=== PATIENT | male | born 1940 | race African-American/Black ===

== ENCOUNTER 2016-12-13 06:05 | Day surgery (SDC) | payer OTHER ==
[2016-12-11 16:49] VITALS: BMI 27.8
[2016-12-13] MEDS ORDERED: BUPIVACAINE HCL/PF 0.5% (5MG/ML) 10 ML VIAL ONE (07:20)
--- NOTE | 2016-12-13 08:00 | HP ---
History & Physical Update - History History: No Change - Physical Physical: No Change - Assessment Assessment: No Change - Plan Plan: No Change
[2016-12-13] MEDS ORDERED: DESFLURANE GAS 240 ML BOTTLE IH ONE (08:10)
[2016-12-13] MEDS ORDERED: ROCURONIUM BROMIDE 50 MG/5 ML VIAL ONE (08:12)
[2016-12-13] MEDS ORDERED: DEXAMETHASONE SOD PHOSPHATE 4 MG/1 ML VIAL ONE (08:12)
[2016-12-13] MEDS ORDERED: KETOROLAC TROMETHAMINE 30 MG/1 ML VIAL ONE (08:12)
[2016-12-13] MEDS ORDERED: PROPOFOL 20 ML ONE (08:12)
[2016-12-13] MEDS ORDERED: ceFAZolin SODIUM 1 GM VIAL ONE (08:12)
[2016-12-13] MEDS ORDERED: MIDAZOLAM HCL 2 MG/2 ML SINGLE DOSE VIAL ONE (08:14)
[2016-12-13] MEDS ORDERED: ceFAZolin SODIUM 1 GM VIAL IVPB ONE (08:28)
[2016-12-13] MEDS ORDERED: BUPIVACAINE HCL/PF 0.5% (5MG/ML) 10 ML VIAL IJ ONE (08:35)
[2016-12-13] MEDS ORDERED: BENZOIN/ALOE VERA/STORAX/TOLU 58 ML BOTTLE ONE (09:33)
[2016-12-13] MEDS ORDERED: NEOSTIGMINE METHYLSULFATE 0.5 MG/ML - 10 ML MDV ONE (09:36)
[2016-12-13] MEDS ORDERED: oxyCODONE HCL 5 MG TABLET PO PRN (10:03)
[2016-12-13] MEDS ORDERED: PROMETHAZINE HCL 25 MG/1 ML VIAL IVPUSH PRN (10:03)
[2016-12-13] MEDS ORDERED: ONDANSETRON 4 MG/2 ML VIAL IVPUSH PRN (10:03)
[2016-12-13 11:51] VITALS: BP 131/82; PULSE 65; TEMP 97.7
--- NOTE | 2016-12-13 13:34 | OP ---
Operative Note - Note: Operative Date: 12/13/16 Pre-Operative Diagnosis: Right inguinal hernia Operation: Right inguinal hernia repair with mesh and excision of lipoma of the cord Findings: indirect inguinal hernia, lipoma of the cord Implants: polypropylene plug and patch Surgeon: Bennett Banegas Anesthesiologist/STRESS TEST TECHNICIAN: Darius Darnell Anesthesia: General Specimens Removed: lipoma of the cord Estimated Blood Loss (mls): 3 Operative Report Dictated: Yes
--- NOTE | 2016-12-16 14:13 | PATH ---
Surgical Pathology Report Patient Name: STEVEN GUZMÁN [facility]. Rec. #: [id number] /Age/Gender: 1940 (Age: 76) / M Account: [id number] Location: [facility] SURGICAL Taken: 12/12/2016 Received: 12/13/2016 Reported: 12/16/2016 Physicians: Bennett Banegas M.D. Specimen(s) Received LIPOMA OF CORD Clinical History Right inguinal hernia Final Diagnosis SOFT TISSUE, RIGHT INGUINAL, EXCISION: BENIGN ADIPOSE TISSUE CONSISTENT WITH CORD LIPOMA. Electronically Signed Thom Beck M.D. Gross Description Received in formalin labeled "lipoma of cord," is a 5.0 x 4.3 x 1.5 cm portion of yellow, lobulated adipose tissue with attached kendall-saravia fibromembranous tissue. Retail Sales Associate Seasonal sections are submitted in one cassette. /12/13/2016 saudi12/13/2016
== END 2016-12-13 11:40 | disposition home or self-care (01) ==
LOC: JASU-SURG 06:05
PROVIDERS: ATTEND Surgery
PROC: 0YU50JZ Supplement Right Inguinal Region with Synthetic Substitute, Open Approach (ICD-10-PCS; principal; 2016-12-13 08:00)
DX: K40.90 Unilateral inguinal hernia, without obstruction or gangrene, not specified as recurrent (principal)
CPT/HCPCS: 88304-TC; 94760

== ENCOUNTER 2017-01-08 12:12 | Emergency (ER) | payer OTHER ==
[2017-01-08 12:16] VITALS: BMI 27.3
[2017-01-08 13:34] LABS: BASOPHIL 2.1 % (0-2.0); EOSINOPHIL 3.3 % (0-4.5); MEAN CELL VOLUME 71.1 fl (80-96); MEAN PLT VOLUME 9.2 fl (7.5-11.1); NEUTROPHILS 40.2 % (42.8-82.8); PLATELET COUNT 169 K/MM3 (134-434); RDW 17.8 % (11.9-15.9); WHITE BLOOD COUNT 3.5 K/mm3 (4.0-10.0)
[2017-01-08 13:48] LABS: INR 1.07 (0.82-1.09); PROTHROMBIN TIME (PATIENT) 12.1 SEC (9.98-11.88)
--- NOTE | 2017-01-08 13:48 | PDOC ---
History of Present Illness <Lily Stanley - Last Filed: 01/08/17 14:08> <Malik Kennedy - Last Filed: 01/10/17 07:17> - General Chief Complaint: Chest Pain Stated Complaint: CHEST PAIN Time Seen by Provider: 01/08/17 12:22 - History of Present Illness Initial Comments: 01/08/17 13:46 "The patient is a 76 year old male, with a significant past medical history of hypertension, asthma, COPD, and prostate cancer who presents to the emergency department with chest pain approximately 2 hours ago. The patient reports he was sitting down, when suddenly he began to experience a sharp nonradiating chest pain. Patient reports his pain lasted approximately 30 minutes and was not exertional or pleuritic. He denies any associated shortness of breath, diaphoresis, palpitations, or lower extremity edema. Patient reports he saw a Community Engagement Coordinator several months ago and had a cardiac cath that was normal. He denies any abdominal pain, nausea, vomiting, diarrhea, or constipation. He denies any fever, chills, headache, or dizziness. He denies any recent travel or sick contacts. Allergies: NKDA Past Surgical History: None reported Social History: Non smoker. No ETOH or recreational drug use. PCP: Dr. Machado " (Malik Kennedy) Past History <JadenAlyxsena - Last Filed: 01/08/17 14:08> - Past Medical History Anemia: No Asthma: Yes Cancer: Yes (PROSTATE CANCER 1999) Cardiac Disorders: No CVA: No COPD: No CHF: No Dementia: No Diabetes: No GI Disorders: No Disorders: No HTN: Yes Hypercholesterolemia: No Liver Disease: No Seizures: No Thyroid Disease: No - Surgical History Abdominal Surgery: No Appendectomy: No Cardiac Surgery: No Cholecystectomy: No Lung Surgery: No Neurologic Surgery: No Orthopedic Surgery: No - Suicide/Smoking/Psychosocial Hx Smoking History: Never smoked Have you smoked in the past 12 months: No If you are a former smoker, when did you quit?: 2002 Hx Alcohol Use: No Drug/Substance Use Hx: No Substance Use Type: None Hx Substance Use Treatment: No <Malik Kennedy - Last Filed: 01/10/17 07:17> - Past Medical History Allergies/Adverse Reactions: Allergies Allergy/AdvReac Type Severity Reaction Status Date / Time No Known Allergies Allergy Verified 01/08/17 12:16 Home Medications: Ambulatory Orders Albuterol Sulfate Inhaler - [Ventolin HFA Inhaler -] 1 inh IH BID 12/11/16 Amlodipine Besylate [Norvasc -] 5 mg PO DAILY 12/11/16 Tamsulosin HCl 0.4 mg PO DAILY 12/11/16 Docusate Sodium [Colace -] 100 mg PO TID PRN #90 capsule 12/13/16 Cardiac Specific PMH - Complaint Specific PMHX Pacemaker: No <Malik Kennedy - Last Filed: 01/10/17 07:17> Review of Systems <Lily Stanley - Last Filed: 01/08/17 14:08> <Malik Kennedy - Last Filed: 01/10/17 07:17> - Review of Systems Comments:: 01/08/17 13:47 "GENERAL/CONSTITUTIONAL: No fever or chills. No weakness. HEAD, EYES, EARS, NOSE AND THROAT: No change in vision. No ear pain or discharge. No sore throat. CARDIOVASCULAR: Yes chest pain. No shortness of breath, diaphoresis, palpitations, or lower extremity edema. RESPIRATORY: No cough, wheezing, or hemoptysis. GASTROINTESTINAL: No nausea, vomiting, diarrhea or constipation. GENITOURINARY: No dysuria, frequency, or change in urination. MUSCULOSKELETAL: No joint or muscle swelling or pain. No neck or back pain. SKIN: No rash NEUROLOGIC: No headache, vertigo, loss of consciousness, or change in strength/ sensation. ENDOCRINE: No increased thirst. No abnormal weight change. HEMATOLOGIC/LYMPHATIC: No anemia, easy bleeding, or history of blood clots. ALLERGIC/IMMUNOLOGIC: No hives or skin allergy. " (Malik Kennedy) *Physical Exam <Lily Stanley - Last Filed: 01/08/17 14:08> <Malik Kennedy - Last Filed: 01/10/17 07:17> - Vital Signs Last Vital Signs Temp Pulse Resp BP Pulse Ox 98.4 F 84 18 148/90 97 01/08/17 20:41 01/08/17 20:41 01/08/17 20:41 01/08/17 20:41 01/08/17 20:41 - Physical Exam Comments: 01/08/17 13:48 "GENERAL: Awake, alert, and fully oriented, in no acute distress HEAD: No signs of trauma EYES: PERRLA, EOMI, sclera anicteric, conjunctiva clear ENT: Auricles normal inspection, hearing grossly normal, nares patent, oropharynx clear without exudates. Moist mucosa NECK: Nontender, no stepoffs, Normal ROM, supple, no lymphadenopathy, JVD, or masses LUNGS: Breath sounds equal, clear to auscultation bilaterally. No wheezes, and no crackles HEART: Regular rate and rhythm, normal S1 and S2, no murmurs, rubs or gallops ABDOMEN: Soft, nontender, normoactive bowel sounds. No guarding, no rebound. No masses EXTREMITIES: Normal range of motion, no edema. No clubbing or cyanosis. No cords, erythema, or tenderness NEUROLOGICAL: Cranial nerves II through XII intact. 5/5 strength and sensation in all extremities, Normal speech, normal gait SKIN: Warm, Dry, normal turgor, no rashes or lesions noted. " (Malik Kennedy) Heart Score/ECG Review <Lily Stanley - Last Filed: 01/08/17 14:08> - History History: Slightly suspicious - Electrocardiogram EKG: Normal - Age Age: >/= 65 - Risk Factors Risk Factors Heart Score: Yes Hx Hypertension - Troponin Troponin: </= normal limit <Malik Kennedy - Last Filed: 01/10/17 07:17> - ECG Impressions Comment:: 01/08/17 13:49 NSR, no BERONICA/STDs, no TWIs, inervals wnl, L axis deviation (Malik Kennedy) ED Treatment Course - LABORATORY CBC & Chemistry Diagram: 01/08/17 13:12 01/08/17 13:12 <Lily Stanley - Last Filed: 01/08/17 14:08> - LABORATORY CBC & Chemistry Diagram: 01/08/17 13:12 01/08/17 13:12 <Malik Kennedy - Last Filed: 01/10/17 07:17> - ADDITIONAL ORDERS Additional order review: 01/08/17 13:12 RBC 5.89 H MCV 71.1 L MCHC 31.0 L RDW 17.8 H MPV 9.2 Neutrophils % 40.2 L Lymphocytes % 43.0 H Monocytes % 11.4 H Eosinophils % 3.3 Basophils % 2.1 H - RADIOLOGY Radiology Studies Ordered: Category Date Time Status CHEST PA & LAT [RAD] Stat Radiology 01/08/17 13:11 Completed 01/08/17 14:08 EXAM: CXR INTERPRETED BY: Dr. Washington REVIEWED BY: Dr. Kennedy IMPRESSION: No acute pathology or significant change since 06/19/2015. (Lily Stanley) Medical Decision Making <Lily Stanley - Last Filed: 01/08/17 14:08> <Malik Kennedy - Last Filed: 01/10/17 07:17> - Medical Decision Making 01/08/17 13:55 76 M with transient, atypical chest pain, now resolved. ACS unlikely given nonischemic EKG and few cardiac risk factors. Pt with stable vitals, No PE risk factors. No tearing sensation to suggest dissection, no palpable abdominal masses. Pulses equal bilaterally. - Labs, trop x 2 - CXR 01/08/17 18:52 CBC,CMP WBC 3.5 K/mm3 (4.0-10.0) L 01/08/17 13:12 RBC 5.89 M/mm3 (4.00-5.60) H 01/08/17 13:12 Hgb 13.0 GM/dL (11.7-16.9) 01/08/17 13:12 Hct 41.9 % (35.4-49) 01/08/17 13:12 MCV 71.1 fl (80-96) L 01/08/17 13:12 MCH 22.0 pg (25.7-33.7) L 01/08/17 13:12 MCHC 31.0 g/dl (32.0-35.9) L 01/08/17 13:12 RDW 17.8 % (11.9-15.9) H 01/08/17 13:12 Plt Count 169 K/MM3 (134-434) 01/08/17 13:12 MPV 9.2 fl (7.5-11.1) 01/08/17 13:12 Neutrophils % 40.2 % (42.8-82.8) L 01/08/17 13:12 Lymphocytes % 43.0 % (8-40) H 01/08/17 13:12 Monocytes % 11.4 % (3.8-10.2) H 01/08/17 13:12 Eosinophils % 3.3 % (0-4.5) 01/08/17 13:12 Basophils % 2.1 % (0-2.0) H 01/08/17 13:12 Sodium 139 mmol/L (136-145) 01/08/17 13:12 Potassium 4.0 mmol/L (3.5-5.1) 01/08/17 13:12 Chloride 102 mmol/L (98-107) 01/08/17 13:12 Carbon Dioxide 33 mmol/L (21-32) H 01/08/17 13:12 Anion Gap 4 (8-16) L 01/08/17 13:12 BUN 15 mg/dL (7-18) 01/08/17 13:12 Creatinine 1.3 mg/dL (0.7-1.3) 01/08/17 13:12 Creat Clearance w eGFR 53.67 (>60) 01/08/17 13:12 Random Glucose 89 mg/dL (74-106) 01/08/17 13:12 Calcium 9.3 mg/dL (8.5-10.1) 01/08/17 13:12 Total Bilirubin 0.8 mg/dL (0.2-1.0) 01/08/17 13:12 AST 10 U/L (15-37) L 01/08/17 13:12 ALT 19 U/L (12-78) 01/08/17 13:12 Alkaline Phosphatase 74 U/L (45-117) D 01/08/17 13:12 Creatine Kinase 195 IU/L (39-308) 01/08/17 13:14 Creatine Kinase Index 0.5 % (0.0-5.0) 01/08/17 13:14 CK-MB (CK-2) 1.038 ng/mL (0.5-3.6) 01/08/17 13:14 Troponin I < 0.02 ng/ml (0.00-0.05) 01/08/17 13:14 B-Natriuretic Peptide 26.47 pg/ml (5-450) 01/08/17 13:14 Total Protein 7.7 g/dl (6.4-8.2) 01/08/17 13:12 Albumin 4.5 g/dl (3.4-5.0) D 01/08/17 13:12 First set of labs wnl, trop negative. Pt continues to be well appearing and asymptomatic with normal vitals. Pt signed out to night attending, Dr. Rojo, at 7PM. Dispo pending repeat troponin and re-evaluation. Case discussed in detail with oncoming Emergency Physician including history, physical exam and ancillary studies. Oncoming Emergency Physician has assumed care for the patient and will complete the evaluation and treatment. Patient is aware of the plan. (Malik Kennedy) *DC/Admit/Observation/Transfer <Lily Stanley - Last Filed: 01/08/17 14:08> <Malik Kennedy - Last Filed: 01/10/17 07:17> Diagnosis at time of Disposition: Chest pain - Discharge Dispostion Disposition: HOME Condition at time of disposition: Stable - Referrals Referrals: Serg Machado [Primary Care Provider] - Rosalio Tomas MD [Staff Physician] - - Patient Instructions Printed Discharge Instructions: DI for Chest Pain Additional Instructions: You must see a jewelry making instructor for further work up of your chest pain. If you experience worsening pain, shortness of breath, or any other concerning symptoms, return to the ER immediately. - Attestations Scribe Attestion: 01/08/17 14:09 Documentation prepared by Lily Stalney, acting as medical radiation therapist for Malik Kennedy MD. (Lily Stanley) Physician Attestion: 01/10/17 07:16 I, Dr. Malik Kennedy MD, attest that this document has been prepared under my direction and personally reviewed by me in its entirety. I further attest, that it accurately reflects all work, treatment, procedures and medical decision -making performed by me. (Malik Kennedy)
[2017-01-08 14:50] LABS: ALBUMIN 4.5 g/dl (3.4-5.0); ANION GAP 4 (8-16); CALCIUM 9.3 mg/dL (8.5-10.1); CO2 33 mmol/L (21-32); GLUCOSE,RANDOM 89 mg/dL (74-106)
[2017-01-08 14:53] LABS: ALK PHOS 74 U/L (45-117); BILIRUBIN,TOTAL 0.8 mg/dL (0.2-1.0); CREATININE 1.3 mg/dL (0.7-1.3); SGOT/AST 10 U/L (15-37); SGPT/ALT 19 U/L (12-78); TOT PROT 7.7 g/dl (6.4-8.2)
[2017-01-08 14:55] LABS: CPK 195 IU/L (39-308); TROPONIN I < 0.02 ng/ml (0.00-0.05)
[2017-01-08 19:48] LABS: CPK 163 IU/L (39-308); TROPONIN I < 0.02 ng/ml (0.00-0.05)
[2017-01-08 20:41] VITALS: PULSE 84
[2017-01-08 20:42] VITALS: BP 148/90; TEMP 98.4
--- NOTE | 2017-01-09 13:03 | EKG ---
Test Reason : Blood Pressure : / mmHG Vent. Rate : 058 BPM Atrial Rate : 058 BPM P-R Int : 206 ms QRS Dur : 094 ms QT Int : 404 ms P-R-T Axes : 066 -24 031 degrees QTc Int : 396 ms SINUS BRADYCARDIA OTHERWISE NORMAL ECG WHEN COMPARED WITH ECG OF 09-DEC-2016 10:17, NO SIGNIFICANT CHANGE WAS FOUND Confirmed by KENDY MCKINNEY MD ([id number]) on 01/09/2017 1:03:31 PM Referred By: Confirmed By:KENDY MCKINNEY MD
== END 2017-01-08 21:02 | disposition home or self-care (01) ==
LOC: JER 12:12
DX: R07.89 Other chest pain (principal); I10 Essential (primary) hypertension; J44.9 Chronic obstructive pulmonary disease, unspecified; Z85.46 Personal history of malignant neoplasm of prostate
CPT/HCPCS: 36415; 71020-TC; 80053; 82550; 82553; 83880; 84484; 85025; 85610; 85730; 86850; 86900; 86901; 93005; 93010; 99283-25

== ENCOUNTER 2018-04-05 13:27 | Emergency (ER) | payer OTHER ==
[2018-04-05 13:31] VITALS: BP 138/76; PULSE 81; TEMP 97.5; BMI 27.8
--- NOTE | 2018-04-05 13:39 | PDOC ---
History of Present Illness - General Chief Complaint: Chest Pain Stated Complaint: CHEST PAIN Time Seen by Provider: 04/05/18 13:38 History Source: Patient Exam Limitations: No Limitations - History of Present Illness Initial Comments: 04/05/18 13:54 77 year old male with PMH HTN, COPD, asthma, prior prostate cancer (18 years ago , raditation tx) presented to ED for left sided neck pain x2 days. Pt reported pain occurs with leftward rotation of head, and is located to the left neck/ left anterior chest wall over the clavicle/left trapezius, intermittent, aggravated by movement, relieved by rest. Pt took 400 mg ibuprofen at 0800 today without relief of symptoms. Pt denied shortness of breath, cough, hemoptysis, lower extremity swelling, midline back pain, abdominal pain, nausea , vomiting, visual changes, weakness, numbness, tingling. Allergies: NKDA Past History - Past Medical History Allergies/Adverse Reactions: Allergies Allergy/AdvReac Type Severity Reaction Status Date / Time No Known Allergies Allergy Verified 04/05/18 13:31 Home Medications: Ambulatory Orders Albuterol Sulfate Inhaler - [Ventolin HFA Inhaler -] 1 inh IH BID 12/11/16 Amlodipine Besylate [Norvasc -] 5 mg PO DAILY 12/11/16 Tamsulosin HCl 0.4 mg PO DAILY 12/11/16 Docusate Sodium [Colace -] 100 mg PO TID PRN #90 capsule 12/13/16 Cyclobenzaprine HCl [Flexeril 10 mg] 10 mg PO TID PRN #15 tablet 04/05/18 Naproxen 500 mg PO BID #10 tablet 04/05/18 Anemia: No Asthma: Yes Cancer: Yes (PROSTATE CANCER 1999) Cardiac Disorders: No CVA: No COPD: No CHF: No Dementia: No Diabetes: No GI Disorders: No Disorders: No HTN: Yes Hypercholesterolemia: No Liver Disease: No Seizures: No Thyroid Disease: No - Surgical History Abdominal Surgery: No Appendectomy: No Cardiac Surgery: No Cholecystectomy: No Lung Surgery: No Neurologic Surgery: No Orthopedic Surgery: No - Suicide/Smoking/Psychosocial Hx Smoking History: Never smoked Have you smoked in the past 12 months: No If you are a former smoker, when did you quit?: 2002 Hx Alcohol Use: No Drug/Substance Use Hx: No Substance Use Type: None Hx Substance Use Treatment: No Review of Systems - Review of Systems Able to Perform ROS?: Yes Comments:: 04/05/18 14:01 General: denied fever, chills, night sweats, generalized weakness. HEENT: denied sore throat, rhinorrhea, ear pain. Neck: admitted to neck pain. Heart: denied chest pain, palpitations, syncope, lower extremity swelling, diaphoresis. Chest: admitted to anterior chest wall pain. Respiratory: denied shortness of breath, cough, sputum production, hemoptysis. Abdomen: denied abdominal pain, nausea, vomiting, diarrhea, constipation, blood in stool. : denied dysuria, increased urinary frequency, hematuria, urinary incontinence , flank pain. Back: denied back pain. Musculoskeletal: denied joint pain, muscle pain, joint swelling. Neurological: denied headache, dizziness, numbness, tingling, weakness. Skin: denied rash, laceration, abrasion. *Physical Exam - Vital Signs Last Vital Signs Temp Pulse Resp BP Pulse Ox 97.5 F L 81 18 138/76 98 04/05/18 13:28 04/05/18 13:28 04/05/18 13:28 04/05/18 13:28 04/05/18 13:28 - Physical Exam Comments: 04/05/18 14:05 Constitutional: Well-nourished, Well-developed, appearing stated age. HEENT: head is normocephalic, atraumatic. EOMI. PERRLA. Neck: supple. Full ROM. reproduction of pain with leftward head rotation. no midline c-spine tenderness. no carotid bruits bilaterally. Heart: regular rhythm. no murmurs, rubs or gallops. Lungs: clear to auscultation bilaterally. no crackles, rhonchi or wheezing. no stridor. Abdomen: soft, nontender. normal bowel sounds. no rebound, guarding, masses. Extremities: Peripheral pulses intact. No lower extremity edema. Neurological: Alert. Oriented x3. CN2-12 intact. 5/5 strength all extremities. Full sensation throughout. No ataxia. Gait normal. Musculoskeletal: tenderness to palpation of left trapezius/rhomboid. Psych: awake, alert, oriented x3. Follows commands. Answers questions appropriately. Moderate Sedation - Procedure Monitoring Vital Signs: Procedure Monitoring Vital Signs Temperature 97.5 F L 04/05/18 13:28 Pulse Rate 81 04/05/18 13:28 Respiratory Rate 18 04/05/18 13:28 Blood Pressure 138/76 04/05/18 13:28 O2 Sat by Pulse Oximetry (%) 98 04/05/18 13:28 Procedures - Additional Procedures Progress: 04/05/18 14:27 Trigger Point Lidocaine Injection: - the point of maximal tenderness was identified over the left trapezius - alcohol swab was applied to the area - 1 cc 1% lidocaine was injected - sub Q swelling was noted - area was massaged Pt reported improvement of pain. No chest pain. No shortness of breath. Pt tolerated procedure well. Medical Decision Making - Medical Decision Making 04/05/18 14:07 77 year old male with above PMH presented to ED for left sided neck pain radiating to left trap/anterior chest wall. Initial Vital Signs Temp Pulse Resp BP Pulse Ox 97.5 F L 81 18 138/76 98 04/05/18 13:28 04/05/18 13:28 04/05/18 13:28 04/05/18 13:28 04/05/18 13:28 Afebrile. No tachycardia. No tachypnea. Mild hypertension. No hypoxia on room air. Labs ordered: none Imaging ordered: none Medications ordered: lidocaine 1% EKG performed at 1334: rate 70, regular rhythm, left axis, normal intervals, nonspecific ST changes. Pt denied chest pain. Vitals normal. EKG no ST elevation or depression. Pain unlikely to be cardiac in origin. Pain is reproducible with movement, maximal point of tenderness to left trap/ rhomboid. Will inject 1% lidocaine to point of maximal tenderness. Analgesia ordered. 04/05/18 14:28 Trigger point injection performed. See above procedure note. Pt reported improvement of pain. Pt discharged with Naproxen and Flexeril prescription. Pt offered first doses, stated he would like to go home and peanut picker his prescriptions later. Pt informed to follow up with PCP. *DC/Admit/Observation/Transfer Diagnosis at time of Disposition: Muscle spasm, Neck pain - Discharge Dispostion Disposition: HOME Condition at time of disposition: Improved Decision to Admit order: No - Prescriptions Prescriptions: Cyclobenzaprine HCl [Flexeril 10 mg] 10 mg PO TID PRN #15 tablet PRN Reason: Pain Naproxen 500 mg PO BID #10 tablet - Referrals - Patient Instructions Printed Discharge Instructions: DI for Muscle Strain Additional Instructions: I have sent a prescription for Naproxen (anti-inflammatory) and Flexeril ( muscle relaxer) to your pharmacy. Take as advised on labels. Follow up with your primary care doctor in 1-2 days. Return to the Emergency Department for increasing pain, chest pain, shortness of breath, vomiting, weakness, numbness, tingling, swelling to your legs or any other new, worsening or concerning symptoms. - Post Discharge Activity Forms/Work/School Notes: Back to Work
--- NOTE | 2018-04-05 13:41 | PDOC ---
Attending Attestation - HPI HPI: 04/05/18 14:05 The patient is a 77 year old male, with a significant past medical history of hypertension, asthma, COPD, and prostate cancer who presents to the emergency department with intermittent left sided upper back pain radiating to the left side of his neck for the past three days. Patient states the left sided neck pain is only exacerbated when turning his head to the left. Patient states that last night he had difficulty sleeping secondary to the neck pain. Patient has not taken any pain medications at home. Patient denies any trauma or straining to the area. He denies any recent travel or sick contacts. Patient denies any associated weakness/numbness/ tingling, chest pain, shortness of breath, diaphoresis, palpitations, or lower extremity edema. He denies any abdominal pain, nausea, vomiting, diarrhea, or constipation. He denies any fever, chills, headache, or dizziness. Allergies: NKDA Past Surgical History: None reported Social History: Non smoker. No ETOH or recreational drug use. PCP: Dr. Machado - Physicial Exam PE: 04/05/18 14:12 ADULT EXAM GENERAL: Awake, alert, and fully oriented, in no acute distress NECK: Supple, no lymphadenopathy, JVD, or masses LUNGS: Breath sounds equal, clear to auscultation bilaterally. No wheezes, and no crackles HEART: Regular rate and rhythm, normal S1 and S2, no murmurs, rubs or gallops ABDOMEN: Soft, nontender, normoactive bowel sounds. No guarding, no rebound. No masses EXTREMITIES: Normal range of motion, no edema. No clubbing or cyanosis. No cords, erythema, or tenderness BACK: (+) Point tenderness to the left upper back that reproduces to the anterior left chest. NEUROLOGICAL: Cranial nerves II through XII grossly intact. Normal speech, normal gait SKIN: Warm, Dry, normal turgor, no rashes or lesions noted. <Caryn Gaming - Last Filed: 04/05/18 14:13> - Resident Resident Name: Holly Canas - ED Attending Attestation I have performed the following: I have examined & evaluated the patient, The case was reviewed & discussed with the resident, I agree w/resident's findings & plan, Exceptions are as noted - Medical Decision Making 04/05/18 14:22 A portion of this note was documented by scribe services under my direction. I have reviewed the details of the note, within reason, and agree with the documentation with the following case summary and management plan written by me. Patient treated in the ED. Nursing notes are reviewed and incorporated into the medical decision-making. Vital signs reviewed. Peripheral IV access obtained by the nurse, laboratory studies are drawn and sent, reviewed and interpreted by myself. Vital Signs Temp Pulse Resp BP Pulse Ox 97.5 F L 81 18 138/76 98 04/05/18 13:28 04/05/18 13:28 04/05/18 13:28 04/05/18 13:28 04/05/18 13:28 77-year-old male with past medical history of hypertension, asthma, COPD, prostate cancer presents to the emergency Department with left upper back pain. The patient reports that he believes he slept wrong. Reports that his pain is intermittent and reproducible upon palpation of the left upper back and with turning of his neck. Denies midsternal chest pain or exertional discomfort. No shortness of breath. Patient was concerned for potential stroke and came to the ER. However, patient denies any diplopia, dysphagia, gait disturbances, dizziness. He has no neurological deficits. Denies any headache. Patient's findings are consistent with upper back spasm. I am not concerned for cardiac disease or pulmonary was not this time. We'll trial naproxen, Flexeril. We'll do a trigger point injection with 1% lidocaine without epinephrine. Supportive care and follow-up with primary care physician. 04/05/18 14:24 3 cc of 1% lidocaine without epinephrine injected successfully with improvement of sy mptoms. Pt feels comfortable going home. I discussed the physical exam findings, ancillary test results and final diagnoses with the patient. I answered all of the patient's questions. The patient was satisfied with the care received and felt comfortable with the discharge plan and treatment plan. The patient will call their primary care physician within 24 hours to arrange follow-up and will return to the Emergency Department with any new, persistant or worsening symptoms. <Singh Guo - Last Filed: 04/05/18 14:25> Heart Score/ECG Review #1 ECG reviewed & interpreted by me at: 13:35 04/05/18 13:40 NR 70, left axis deviation, LVH, no std/hilario, QTC 421 msec, poor R wave progression <Singh Guo - Last Filed: 04/05/18 14:25>
[2018-04-05] MEDS ORDERED: ASPIRIN 81 MG CHEWABLE TABLETS PO ONE (13:42)
[2018-04-05] MEDS ORDERED: LIDOCAINE HCL 1%, 10 MG/ML (50 mL VIAL) SQ ONE (14:02)
[2018-04-05] MEDS ORDERED: CYCLOBENZAPRINE HCL 10 MG TABLET (FP) PO ONE (14:04)
[2018-04-05] MEDS ORDERED: NAPROXEN 500 MG TABLET (FP) PO ONE (14:04)
[2018-04-05] MEDS ORDERED: LIDOCAINE HCL 1%, 10 MG/ML (20ML VIAL) ONE (14:13)
--- NOTE | 2018-04-05 14:17 | PDOC ---
Attending Attestation - Resident Resident Name: Holly Canas - ED Attending Attestation I have performed the following: I have examined & evaluated the patient, The case was reviewed & discussed with the resident, I agree w/resident's findings & plan, Exceptions are as noted - Medical Decision Making 04/05/18 14:17 A portion of this note was documented by scribe services under my direction. I have reviewed the details of the note, within reason, and agree with the documentation with the following case summary and management plan written by me. Patient treated in the ED. Nursing notes are reviewed and incorporated into the medical decision-making. Vital signs reviewed. Peripheral IV access obtained by the nurse, laboratory studies are drawn and sent, reviewed and interpreted by myself. Vital Signs Temp Pulse Resp BP Pulse Ox 97.5 F L 81 18 138/76 98 04/05/18 13:28 04/05/18 13:28 04/05/18 13:28 04/05/18 13:28 04/05/18 13:28 77-year-old male with past medical history of hypertension, asthma, COPD, prostate cancer presents to the emergency Department with left upper back pain. The patient reports that he believes he slept wrong. Reports that his pain is intermittent and reproducible upon palpation of the left upper back and with turning of his neck. Denies midsternal chest pain or exertional discomfort. No shortness of breath. Patient was concerned for potential stroke and came to the ER. However, patient denies any diplopia, dysphagia, gait disturbances, dizziness. He has no neurological deficits. Denies any headache. Patient's findings are consistent with upper back spasm. I am not concerned for cardiac disease or pulmonary was not this time. We'll trial naproxen, Flexeril. We'll do a trigger point injection with 1% lidocaine without epinephrine. Supportive care and follow-up with primary care physician.
--- NOTE | 2018-04-06 10:06 | EKG ---
Test Reason : Blood Pressure : / mmHG Vent. Rate : 070 BPM Atrial Rate : 070 BPM P-R Int : 178 ms QRS Dur : 106 ms QT Int : 390 ms P-R-T Axes : 040 -38 018 degrees QTc Int : 421 ms NORMAL SINUS RHYTHM WITH SINUS ARRHYTHMIA LEFT AXIS DEVIATION MINIMAL VOLTAGE CRITERIA FOR LVH, MAY BE NORMAL VARIANT CANNOT RULE OUT ANTERIOR INFARCT , AGE UNDETERMINED ABNORMAL ECG WHEN COMPARED WITH ECG OF 08-JAN-2017 12:23, NO SIGNIFICANT CHANGE WAS FOUND Confirmed by SHIRLEY HALL MD ([id number]) on 04/06/2018 10:06:24 AM Referred By: Confirmed By:SHIRLEY HALL MD
== END 2018-04-05 15:02 | disposition home or self-care (01) ==
LOC: JER 13:27
PROC: 3E023BZ Introduction of Anesthetic Agent into Muscle, Percutaneous Approach (ICD-10-PCS; principal; 2018-04-05)
DX: M62.838 Other muscle spasm (principal); I10 Essential (primary) hypertension; J44.9 Chronic obstructive pulmonary disease, unspecified; J45.909 Unspecified asthma, uncomplicated; Z85.46 Personal history of malignant neoplasm of prostate
CPT/HCPCS: 93005; 93010; 96372; 99281-25

== ENCOUNTER 2019-11-27 08:54 | Emergency (ER) | payer OTHER ==
[2019-11-27 09:14] VITALS: BP 175/101; PULSE 52; TEMP 98.2; BMI 26.1
[2019-11-27] MEDS ORDERED: FAMOTIDINE 20 MG/50 ML IVPB 20 MG/50 ML MG IVPB ONE ×2 (09:24→09:44)
[2019-11-27] MEDS ORDERED: MAG HYDROX/AL HYDROX/SIMETH 30 ML UNIT-DOSE CUP PO ONE (09:24)
[2019-11-27] MEDS ORDERED: MAG HYDROX/AL HYDROX/SIMETH 30 ML UNIT-DOSE CUP ONE (09:43)
--- NOTE | 2019-11-27 09:43 | PDOC ---
Attending Attestation - Resident Resident Name: Owen Retana - ED Attending Attestation I have performed the following: I have examined & evaluated the patient, The case was reviewed & discussed with the resident, I agree w/resident's findings & plan, Exceptions are as noted - HPI HPI: 11/27/19 09:36 79 yo M h/o HTN, prostate CA p/w L sided lower abdominal pain x5 months, unchanged. Was seen in october and had CTA done at that time with normal abdominal aorta and pancreatic neck cyst with recommendation for MRCP f/u. Pt had GI f/u 11/22 but was cancelled due to insurance reasons. Has a new appointment scheduled for later this month but came in today because he wanted to "get checked out" because he felt that his appointment was too far off and the pain has persisted for many months. Denies any worsening or change in his symptoms from onset to present time including during his last ED visit during which he had CTA c/a/p done. Tolerating PO. Denies n/v. Reports unintentional weight loss but otherwise no other complaints. - Physicial Exam PE: 11/27/19 09:39 General: well appearing HEENT: NCAT Abdomen: soft, nt, nd, no rebound, no guarding, no appreciable masses - Medical Decision Making 11/27/19 09:40 79 yo M with abdominal pain x5 months unchanged, abd non-tender on exam, EKG sinus amie without acute ischemic changes, CTA c/a/p negative for acute pathology 1 month prior but notable for pancreatic neck cyst. Pain possibly 2/2 mass however no jaundice or evidence of obstruction on exam. Doubt appy or diverticulitis given duration of pain. No masses or abdominal tenderness and given duration of symptoms also unlikely incarcerated or strangulated hernia. Plan: -labs -pain control as needed -reassess, if labs largely unremarkable anticipate d/c home with return precautions, recommend GI f/u This clinical encounter is taking place during a federal and state health care emergency attributable to the novel [place] Virus pandemic. The [employer] of the Department of Health and Human Services has declared, pursuant to the Public Health Service Act 319F-3 (42 U.S.C. 247d-6d), that a covered persons activities related to medical countermeasures against COVID-19 will be immune from liability under Federal and State law. Discharge - Discharge Information Problems reviewed: Yes Clinical Impression/Diagnosis: Abdominal pain Condition: Stable Disposition: HOME - Additional Discharge Information Prescriptions: Calcium Carbonate/Simethicone [Maalox Advanced Tab Chew] 1 each PO TID #30 tab.chew Famotidine [Pepcid] 20 mg PO DAILY #10 tablet - Follow up/Referral Referrals: Misti Buck MD [Staff Physician] - Kris June MD [Staff Physician] - - Patient Discharge Instructions Patient Printed Discharge Instructions: DI for Abdominal Pain-Adult Additional Instructions: Please call the GI Doctor, Dr. June on Friday for an earlier and updated appointment. Make sure to bring a copy of your CT results and discuss the findings regarding your Pancreas. Take the medications Pepcid and Maalox as prescribed that were sent to your Pharmacy [facility]. Return to the ER for new or concerning symptoms. Thank you - Post Discharge Activity
[2019-11-27 09:46] LABS: BASO % 1.3 % (0-2.0); EOS % 1.6 % (0-4.5); HEMATOCRIT 39.5 % (35.4-49); HEMOGLOBIN 12.2 GM/dl (11.7-16.9); LYMPH % 30.1 % (8-40); MCHC 30.9 g/dl (32.0-35.9); MEAN CELL VOLUME 74.3 fl (80-96); MEAN PLT VOLUME 9.8 fl (7.5-11.1); MONO % 7.3 % (3.8-10.2); NEUT % 59.7 % (42.8-82.8); PLATELET COUNT 161 K/MM3 (134-434); RBC 5.31 M/mm3 (4.00-5.60); RDW 15.2 % (11.9-15.9); WHITE BLOOD COUNT 3.7 K/mm3 (4.0-10.8)
--- NOTE | 2019-11-27 09:48 | PDOC ---
History of Present Illness - General Chief Complaint: Pain, Acute Stated Complaint: ABDOMINAL PAIN Time Seen by Provider: 11/27/19 09:02 History Source: Patient Exam Limitations: No Limitations - History of Present Illness Initial Comments: 11/27/19 09:36 79 yo male pmh HTN, HLD, COPD, asthma, prostate CA s/p radiation (18 years ago), ascending thoracic aortic aneurysm (4 cm, October 2019), anemia and noted 9 mm pancreatic neck cyst with recommended MRCP f/u (CTA October 2019) presents to the ED for abdominal pain since June. Pt states he has had LLQ and periumbilical abdominal pain since June that is unchanged, went to see his GI Doctor, Dr. Montano however, his appointment on 10/22 was cancelled due to insurance issues. Pt states he was able to set up another appointment with a GI doctor 11/18 however, due to the length of the pain, states he wanted to get it checked out. Pain is described as intermittent, relieved with food, throbbing, non radiating and is unchanged in quality or intensity since June. Pt has not taken any new medication for pain control. Pt admits to unintentional weight loss. Denies N/V/F/C, changes in bowel or bladder habits, blood in the stool, CP, SOB, back pain Past History - Medical History Allergies/Adverse Reactions: Allergies Allergy/AdvReac Type Severity Reaction Status Date / Time No Known Allergies Allergy Verified 10/26/19 02:36 Home Medications: Ambulatory Orders Albuterol Sulfate Inhaler - [Ventolin HFA Inhaler -] 1 inh IH BID 12/11/16 Amlodipine Besylate [Norvasc -] 10 mg PO DAILY 12/11/16 Tamsulosin HCl 0.4 mg PO DAILY 12/11/16 Docusate Sodium [Colace -] 100 mg PO TID PRN #90 capsule 12/13/16 Cetirizine HCl 10 mg PO DAILY 10/26/19 Ibuprofen 600 mg PO TID 10/26/19 Losartan Potassium 50 mg PO DAILY 10/26/19 Umeclidinium Brm/Vilanterol Tr [Anoro Ellipta 62.5-25 Mcg INH] 1 each IH DAILY 10/26/19 Calcium Carbonate/Simethicone [Maalox Advanced Tab Chew] 1 each PO TID #30 tab.chew 11/27/19 Famotidine [Pepcid] 20 mg PO DAILY #10 tablet 11/27/19 Anemia: No Asthma: Yes Cancer: Yes (PROSTATE CANCER 1999) Cardiac Disorders: No CVA: No COPD: Yes CHF: No Dementia: No Diabetes: No GI Disorders: No Disorders: No HTN: Yes Hypercholesterolemia: No Liver Disease: No Seizures: No Thyroid Disease: No - Surgical History Abdominal Surgery: No Appendectomy: No Cardiac Surgery: No Cholecystectomy: No Lung Surgery: No Neurologic Surgery: No Orthopedic Surgery: No - Immunization History Immunization Up to Date: No - Psycho-Social/Smoking History Smoking History: Former smoker Have you smoked in the past 12 months: No If you are a former smoker, when did you quit?: 15 YEARS AGO Information on smoking cessation initiated: No - Substance Abuse Hx (Audit-C & DAST Scrn) How often the patient has a drink containing alcohol: Never Score: In Men: 4 or > Positive; In Women: 3 or > Positive: 0 Screen Result (Pos requires Nsg. Audit-10AR): Negative In the last yr the pt used illegal drug/Rx for NonMed reason: No Score: Yes response is considered Positive: 0 Screen Result (Positive result requires Nsg. DAST-10): Negative Review of Systems - Review of Systems Constitutional: Yes: Symptoms Reported HEENTM: Yes: Symptoms Reported Respiratory: Yes: Symptoms reported Cardiac (ROS): Yes: Symptoms Reported ABD/GI: Yes: Symptoms Reported : Yes: Symptoms Reported Musculoskeletal: Yes: Symptoms Reported Integumentary: Yes: Symptoms Reported Neurological: Yes: Symptoms reported *Physical Exam - Vital Signs Last Vital Signs Temp Pulse Resp BP Pulse Ox 98.2 F 52 L 18 175/101 H 97 11/27/19 08:55 11/27/19 08:55 11/27/19 08:55 11/27/19 08:55 11/27/19 08:55 - Physical Exam General Appearance: Yes: Nourished, Appropriately Dressed. No: Apparent Distress HEENT: positive: EOMI Neck: positive: Supple. negative: Carotid bruit Respiratory/Chest: positive: Lungs Clear, Normal Breath Sounds. negative: Respiratory Distress, Accessory Muscle Use, Crackles, Rales, Rhonchi, Stridor, Wheezing Cardiovascular: positive: Regular Rhythm, S1, S2, Bradycardia. negative: Edema, JVD, Murmur Vascular Pulses: Dorsalis-Pedis (R): 4+, Doralis-Pedis (L): 4+ Gastrointestinal/Abdominal: positive: Flat, Soft. negative: Pulsatile Mass, Protuberent, Distended, Guarding, Rebound, Tenderness (distractable LLQ pain and periumbilical on palpation) Musculoskeletal: negative: CVA Tenderness Extremity: positive: Normal Capillary Refill, Normal Inspection, Normal Range of Motion Integumentary: positive: Normal Color, Dry, Warm Neurologic: positive: Fully Oriented, Alert, Motor Strength 07/26 ED Treatment Course - LABORATORY CBC & Chemistry Diagram: 11/27/19 09:30 11/27/19 09:30 Medical Decision Making - Medical Decision Making 11/27/19 09:52 79 yo male pmh HTN, HLD, COPD, asthma, prostate CA s/p radiation (18 years ago), ascending thoracic aortic aneurysm (4 cm, October 2019), anemia and noted 9 mm pancreatic neck cyst with recommended MRCP f/u (CTA October 2019) presents to the ED for abdominal pain since June. Pt states he has had LLQ and periumbilical abdominal pain since June that is unchanged, went to see his GI Doctor, Dr. Montano however, his appointment on 10/22 was cancelled due to insurance issues. Pt states he was able to set up another appointment with a GI doctor 11/18 however, due to the length of the pain, states he wanted to get it checked out. Pain is described as intermittent, relieved with food, throbbing, non radiating and is unchanged in quality or intensity since June. Pt has not taken any new medication for pain control. Pt admits to unintentional weight loss. Denies N/V/F/C, changes in bowel or bladder habits, blood in the stool, CP, SOB, back pain vitals stable, BP elevated, pt states he took his home dosed BP medication this am. Will reassess after pain control Due to unchanged hx of abdominal pain since June and a CTA A/P in October, no CT ordered today. Pt has not had f/u GI appointment or the recommended MRCP for the new 9 mm Pancreatic neck mass which could be contributing to his symptoms Will obtain labs and give medications for symptomatic relief 11/27/19 10:[address] June and Dr. Buck applications support lead service. Discussed with [place] who sent a message to the GI office requesting a call back and appointment as soon as possible for Mr. Marley. Told patient to keep his appointment on 11/18 but if he ios able to see a GI Doctor sooner with Dr. Crisostomo or [place], that he should do so 11/27/19 10:36 Pt reports improvement of symptoms after medication Labs unremarkable. Baseline Cr 1.3, today 1.4 Will DC pt home with PCP and GI f/u Discharge - Discharge Information Problems reviewed: Yes Clinical Impression/Diagnosis: Abdominal pain Condition: Stable Disposition: HOME - Admission No - Additional Discharge Information Prescriptions: Calcium Carbonate/Simethicone [Maalox Advanced Tab Chew] 1 each PO TID #30 tab.chew Famotidine [Pepcid] 20 mg PO DAILY #10 tablet - Follow up/Referral Referrals: Kris June MD [Staff Physician] - Misti Buck MD [Staff Physician] - - Patient Discharge Instructions Patient Printed Discharge Instructions: DI for Abdominal Pain-Adult Additional Instructions: Please call the GI Doctor, Dr. June on Friday for an earlier and updated appointment. Make sure to bring a copy of your CT results and discuss the findings regarding your Pancreas. Take the medications Pepcid and Maalox as prescribed that were sent to your Pharm[facility]. Return to the ER for new or concerning symptoms. Thank you - Post Discharge Activity
[2019-11-27 09:49] LABS: INR 1.21 (0.82-1.09); PROTHROMBIN TIME (PATIENT) 13.5 SEC (10.2-13.0)
[2019-11-27 09:53] LABS: ALBUMIN 4.4 g/dl (3.4-5.0); CALCIUM 9.4 mg/dl (8.5-10); CREATININE 1.4 mg/dl (0.55-1.3); POTASSIUM 3.8 mmol/L (3.5-5.1); TOT PROT 7.2 g/dl (6.4-8.2)
--- NOTE | 2019-11-28 12:45 | EKG ---
Test Reason : Blood Pressure : / mmHG Vent. Rate : 044 BPM Atrial Rate : 044 BPM P-R Int : 194 ms QRS Dur : 108 ms QT Int : 442 ms P-R-T Axes : 061 -28 013 degrees QTc Int : 377 ms MARKED SINUS BRADYCARDIA ABNORMAL ECG WHEN COMPARED WITH ECG OF 26-OCT-2019 02:32, VENT. RATE HAS DECREASED BY 26 BPM Confirmed by Romario Daniel ([id number]) on 11/28/2019 12:45:42 PM Referred By: MD JOHN Confirmed By:Romario Daniel
== END 2019-11-27 11:48 | disposition home or self-care (01) ==
LOC: FER 08:54
PROC: 3E033GC Introduction of Other Therapeutic Substance into Peripheral Vein, Percutaneous Approach (ICD-10-PCS; principal; 2019-11-27)
DX: R10.9 Unspecified abdominal pain (principal)
CPT/HCPCS: 36415; 80053; 83690; 85025; 85610; 93005; 99284-25

== ENCOUNTER 2020-06-24 11:36 | Emergency (ER) | payer OTHER ==
[2020-06-24 11:44] VITALS: BMI 25.0
[2020-06-24 13:39] LABS: BASO % 0.6 % (0-2.0); EOS % 1.8 % (0-4.5); HEMATOCRIT 39.3 % (35.4-49); HEMOGLOBIN 12.5 GM/dL (11.7-16.9); LYMPH % 43.4 % (8-40); MCH 22.7 pg (25.7-33.7); MCHC 31.8 g/dl (32.0-35.9); MEAN CELL VOLUME 71.5 fl (80-96); MEAN PLT VOLUME 9.4 fl (7.5-11.1); MONO % 11.6 % (3.8-10.2); NEUT % 42.6 % (42.8-82.8); PLATELET COUNT 158 K/MM3 (134-434); RDW 16.7 % (11.9-15.9); WHITE BLOOD COUNT 3.8 K/mm3 (4.0-10.0)
[2020-06-24 13:40] LABS: PH,URINE 6.5 (5.0-8.0); URINE APPEARANCE CLEAR; URINE BILIRUBIN NEGATIVE (NEGATIVE); URINE COLOR YELLOW; URINE GLUCOSE (UA) NEGATIVE (NEGATIVE); URINE KETONE NEGATIVE (NEGATIVE); URINE LEUK ESTERASE NEGATIVE (NEGATIVE); URINE NITRITE NEGATIVE (NEGATIVE); URINE PROTEIN NEGATIVE (NEGATIVE); URINE UROBILINOGEN 0.2 mg/dL (0.2-1.0)
[2020-06-24 13:49] LABS: POTASSIUM 4.1 mmol/L (3.5-5.1)
[2020-06-24 13:52] LABS: ALBUMIN 4.4 g/dl (3.4-5.0); BLOOD UREA NITROGEN 15.3 mg/dL (7-18)
[2020-06-24 13:55] LABS: CREATININE 1.4 mg/dL (0.55-1.3)
[2020-06-24 13:56] LABS: BILIRUBIN,TOTAL 1.1 mg/dL (0.2-1)
[2020-06-24 13:57] LABS: TOT PROT 7.5 g/dl (6.4-8.2)
[2020-06-24] MEDS ORDERED: SODIUM CHLORIDE 1,000 ML IV STA (14:40)
[2020-06-24 17:07] VITALS: TEMP 98.4
[2020-06-24 17:55] VITALS: BP 122/78; PULSE 74
== END 2020-06-24 17:47 | disposition home or self-care (01) ==
LOC: JER 11:36
PROC: 3E0337Z Introduction of Electrolytic and Water Balance Substance into Peripheral Vein, Percutaneous Approach (ICD-10-PCS; principal; 2020-06-24)
DX: M25.551 Pain in right hip (principal)
CPT/HCPCS: 36415; 74177-TC; 80053; 81003; 85025; 87086; 99284-25; Q9967

== ENCOUNTER 2020-11-23 14:16 | Inpatient (IN) | payer OTHER ==
[2020-11-23 15:56] LABS: BASO % 1.3 % (0-2.0); EOS % 1.8 % (0-4.5); HEMATOCRIT 37.3 % (35.4-49); HEMOGLOBIN 12.1 GM/dL (11.7-16.9); LYMPH % 44.4 % (8-40); MCHC 32.4 g/dl (32.0-35.9); MEAN CELL VOLUME 71.2 fl (80-96); MEAN PLT VOLUME 8.5 fl (7.5-11.1); MONO % 11.6 % (3.8-10.2); NEUT % 40.9 % (42.8-82.8); PLATELET COUNT 144 10^3/uL (134-434); RBC 5.24 M/mm3 (4.00-5.60); RDW 16.9 % (11.9-15.9); WHITE BLOOD COUNT 2.9 K/mm3 (4.0-10.0)
[2020-11-23 16:06] LABS: INR 1.11 (0.83-1.09); PROTHROMBIN TIME (PATIENT) 13.6 SEC (9.7-13.0)
[2020-11-23 16:08] LABS: ACTIVATED PTT 33.8 SECONDS (25.2-36.5)
[2020-11-23 16:15] LABS: CHLORIDE 104 mmol/L (98-107); SODIUM 138 mmol/L (136-145)
[2020-11-23 16:18] LABS: ANION GAP 5 MMOL/L (8-16); BLOOD UREA NITROGEN 17.3 mg/dL (7-18); CALCIUM 9.3 mg/dL (8.5-10.1); CO2 29 mmol/L (21-32); LIPASE 191 U/L (73-393); MAGNESIUM 2.7 mg/dL (1.8-2.4)
[2020-11-23 16:19] LABS: GLUCOSE,RANDOM 81 mg/dL (74-106)
[2020-11-23 16:21] LABS: CREATININE 1.4 mg/dL (0.55-1.3); PHOSPHOROUS 3.8 mg/dL (2.5-4.9); SGOT/AST 12 U/L (15-37); SGPT/ALT 24 U/L (13-61)
[2020-11-23 16:23] LABS: BILIRUBIN,TOTAL 0.6 mg/dL (0.2-1); TOT PROT 7.1 g/dl (6.4-8.2)
[2020-11-23 16:24] LABS: ALK PHOS 53 U/L (45-117); N-TERMINAL BNP 45.4 pg/ml (5-450)
[2020-11-23] MEDS ORDERED: ACETAMINOPHEN 500 MG TABLET (FP) PO PRN (19:29)
[2020-11-23] MEDS ORDERED: ALBUTEROL SO4 HFA INHALER IH PRN (19:29)
[2020-11-24 03:34] LABS: CHOLESTEROL 132 mg/dL (50-200); TRIGLYCERIDES 54 mg/dL (0-150)
[2020-11-24 03:35] LABS: LDL CHOLESTEROL (ONLY SJRH) 65 mg/dL (5-100)
[2020-11-24 03:37] LABS: HDL CHOLESTEROL 54 mg/dL (40-60)
[2020-11-24 03:39] VITALS: BMI 25.4
[2020-11-24 07:30] LABS: HEMATOCRIT 37.9 % (35.4-49); HEMOGLOBIN 12.3 GM/dL (11.7-16.9); MCH 23.3 pg (25.7-33.7); MCHC 32.6 g/dl (32.0-35.9); MEAN CELL VOLUME 71.4 fl (80-96); MEAN PLT VOLUME 9.7 fl (7.5-11.1); PLATELET COUNT 158 10^3/uL (134-434); RDW 16.8 % (11.9-15.9)
[2020-11-24 07:40] LABS: CHLORIDE 106 mmol/L (98-107); SODIUM 139 mmol/L (136-145)
[2020-11-24 07:43] LABS: ALBUMIN 3.8 g/dl (3.4-5.0); ANION GAP 4 MMOL/L (8-16); BLOOD UREA NITROGEN 18.7 mg/dL (7-18); CALCIUM 9.1 mg/dL (8.5-10.1); CO2 29 mmol/L (21-32); GLUCOSE,RANDOM 91 mg/dL (74-106); MAGNESIUM 2.4 mg/dL (1.8-2.4)
[2020-11-24 07:46] LABS: CREATININE 1.4 mg/dL (0.55-1.3); PHOSPHOROUS 3.8 mg/dL (2.5-4.9); SGOT/AST 13 U/L (15-37); SGPT/ALT 25 U/L (13-61)
[2020-11-24 07:47] LABS: BILIRUBIN,TOTAL 0.7 mg/dL (0.2-1); TOT PROT 6.7 g/dl (6.4-8.2)
[2020-11-24 07:49] LABS: ALK PHOS 51 U/L (45-117)
[2020-11-24] MEDS ORDERED: PT OWN MED DRAWER 7, Y5N ONE (08:41)
[2020-11-24] MEDS: amLODIPine BESYLATE 10 MG TABLET (FP) PO SCH ×2 (08:44→09:43)
[2020-11-24] MEDS: UMECLIDINIUM/VILANTEROL (ANORO) 62.5/25 MCG INHALER IH SCH ×2 (08:45→09:42)
[2020-11-24] MEDS: TAMSULOSIN HCL 0.4 MG CAP PO SCH (12:42)
[2020-11-24] MEDS: ASPIRIN 81 MG CHEWABLE TABLETS PO SCH (12:42)
[2020-11-24 15:12] LABS: CHOLESTEROL 131 mg/dL (50-200); TRIGLYCERIDES 48 mg/dL (0-150)
[2020-11-24 15:13] LABS: LDL CHOLESTEROL (ONLY SJRH) 66 mg/dL (5-100)
[2020-11-24 15:15] LABS: HDL CHOLESTEROL 55 mg/dL (40-60)
[2020-11-24] MEDS ORDERED: SODIUM CHLORIDE 1,000 ML IV SCH (16:15)
[2020-11-24] MEDS: MELATONIN 5 MG TABLETS PO PRN (21:38)
[2020-11-24] MEDS: ATORVASTATIN CA 10 MG TABLET (FP) PO SCH (21:38)
[2020-11-25 08:16] LABS: HEMOGLOBIN 11.8 GM/dL (11.7-16.9); MCH 23.3 pg (25.7-33.7); MCHC 32.8 g/dl (32.0-35.9); MEAN CELL VOLUME 71.1 fl (80-96); MEAN PLT VOLUME 10.1 fl (7.5-11.1); PLATELET COUNT 140 10^3/uL (134-434); RBC 5.07 M/mm3 (4.00-5.60); RDW 16.9 % (11.9-15.9); WHITE BLOOD COUNT 3.2 K/mm3 (4.0-10.0)
[2020-11-25 08:42] LABS: CALCIUM 8.6 mg/dL (8.5-10.1)
[2020-11-25 08:43] LABS: BLOOD UREA NITROGEN 16.2 mg/dL (7-18)
[2020-11-25 08:46] LABS: CREATININE 1.2 mg/dL (0.55-1.3)
[2020-11-25] MEDS: TAMSULOSIN HCL 0.4 MG CAP PO SCH (10:11)
[2020-11-25] MEDS: metoPROLOL SUCCINATE 25 MG TAB.SR.24H (FP) PO SCH (10:12)
[2020-11-25] MEDS: ENOXAPARIN NA (PORCINE) 40 MG/0.4 ML DISP.SYRIN SQ SCH (10:12)
[2020-11-25] MEDS: amLODIPine BESYLATE 10 MG TABLET (FP) PO SCH (10:12)
[2020-11-25] MEDS: ASPIRIN 81 MG CHEWABLE TABLETS PO SCH (10:12)
[2020-11-25] MEDS: UMECLIDINIUM/VILANTEROL (ANORO) 62.5/25 MCG INHALER IH SCH (10:13)
[2020-11-25] MEDS: ATORVASTATIN CA 10 MG TABLET (FP) PO SCH (21:48)
[2020-11-26 08:08] LABS: HEMATOCRIT 37.6 % (35.4-49); HEMOGLOBIN 12.3 GM/dL (11.7-16.9); MCH 23.4 pg (25.7-33.7); MCHC 32.7 g/dl (32.0-35.9); MEAN CELL VOLUME 71.5 fl (80-96); MEAN PLT VOLUME 9.9 fl (7.5-11.1); PLATELET COUNT 141 10^3/uL (134-434); RBC 5.26 M/mm3 (4.00-5.60); RDW 16.7 % (11.9-15.9)
[2020-11-26 08:35] LABS: CALCIUM 9.1 mg/dL (8.5-10.1)
[2020-11-26 08:36] LABS: BLOOD UREA NITROGEN 15.4 mg/dL (7-18)
[2020-11-26 08:39] LABS: CREATININE 1.4 mg/dL (0.55-1.3)
[2020-11-26] MEDS: amLODIPine BESYLATE 10 MG TABLET (FP) PO SCH (09:19)
[2020-11-26] MEDS: TAMSULOSIN HCL 0.4 MG CAP PO SCH (09:19)
[2020-11-26] MEDS: metoPROLOL SUCCINATE 25 MG TAB.SR.24H (FP) PO SCH (09:19)
[2020-11-26] MEDS: ENOXAPARIN NA (PORCINE) 40 MG/0.4 ML DISP.SYRIN SQ SCH (09:19)
[2020-11-26] MEDS: ASPIRIN 81 MG CHEWABLE TABLETS PO SCH (09:19)
[2020-11-26] MEDS: UMECLIDINIUM/VILANTEROL (ANORO) 62.5/25 MCG INHALER IH SCH (09:21)
[2020-11-26] MEDS: ATORVASTATIN CA 10 MG TABLET (FP) PO SCH (21:41)
[2020-11-27 08:51] LABS: HEMOGLOBIN 11.9 GM/dL (11.7-16.9); MCH 23.4 pg (25.7-33.7); MEAN PLT VOLUME 10.4 fl (7.5-11.1); PLATELET COUNT 139 10^3/uL (134-434); RBC 5.07 M/mm3 (4.00-5.60); RDW 16.6 % (11.9-15.9); WHITE BLOOD COUNT 2.7 K/mm3 (4.0-10.0)
[2020-11-27] MEDS: TAMSULOSIN HCL 0.4 MG CAP PO SCH (09:21)
[2020-11-27] MEDS: amLODIPine BESYLATE 10 MG TABLET (FP) PO SCH (09:21)
[2020-11-27] MEDS: ENOXAPARIN NA (PORCINE) 40 MG/0.4 ML DISP.SYRIN SQ SCH (09:21)
[2020-11-27] MEDS: ASPIRIN 81 MG CHEWABLE TABLETS PO SCH (09:21)
[2020-11-27 09:22] LABS: CALCIUM 8.7 mg/dL (8.5-10.1)
[2020-11-27 09:23] LABS: BLOOD UREA NITROGEN 17.4 mg/dL (7-18)
[2020-11-27 09:25] LABS: MAGNESIUM 2.1 mg/dL (1.8-2.4)
[2020-11-27 09:26] LABS: CREATININE 1.3 mg/dL (0.55-1.3)
[2020-11-27] MEDS: UMECLIDINIUM/VILANTEROL (ANORO) 62.5/25 MCG INHALER IH SCH (09:26)
[2020-11-27 09:27] LABS: PHOSPHOROUS 2.6 mg/dL (2.5-4.9)
[2020-11-27] MEDS: MELATONIN 5 MG TABLETS PO PRN (21:26)
[2020-11-27] MEDS: ATORVASTATIN CA 10 MG TABLET (FP) PO SCH (21:26)
[2020-11-28] MEDS: TAMSULOSIN HCL 0.4 MG CAP PO SCH (09:18)
[2020-11-28] MEDS: amLODIPine BESYLATE 10 MG TABLET (FP) PO SCH (09:19)
[2020-11-28] MEDS: ENOXAPARIN NA (PORCINE) 40 MG/0.4 ML DISP.SYRIN SQ SCH (09:19)
[2020-11-28] MEDS: UMECLIDINIUM/VILANTEROL (ANORO) 62.5/25 MCG INHALER IH SCH (09:19)
[2020-11-28] MEDS: ASPIRIN 81 MG CHEWABLE TABLETS PO SCH (09:19)
[2020-11-28 09:21] LABS: BLOOD UREA NITROGEN 16.4 mg/dL (7-18); CALCIUM 9.1 mg/dL (8.5-10.1); MAGNESIUM 2.1 mg/dL (1.8-2.4)
[2020-11-28 09:25] LABS: CREATININE 1.2 mg/dL (0.55-1.3); PHOSPHOROUS 3.1 mg/dL (2.5-4.9)
[2020-11-28] MEDS: ATORVASTATIN CA 10 MG TABLET (FP) PO SCH (21:24)
[2020-11-28] MEDS: MELATONIN 5 MG TABLETS PO PRN (21:24)
[2020-11-29 07:35] LABS: EOS % 2.4 % (0-4.5); HEMATOCRIT 38.7 % (35.4-49); HEMOGLOBIN 12.8 GM/dL (11.7-16.9); LYMPH % 50.9 % (8-40); MCH 23.5 pg (25.7-33.7); MEAN CELL VOLUME 71.2 fl (80-96); MEAN PLT VOLUME 9.7 fl (7.5-11.1); MONO % 10.9 % (3.8-10.2); NEUT % 34.8 % (42.8-82.8); PLATELET COUNT 151 10^3/uL (134-434); RBC 5.43 M/mm3 (4.00-5.60); RDW 16.7 % (11.9-15.9); WHITE BLOOD COUNT 3.1 K/mm3 (4.0-10.0)
[2020-11-29 07:39] LABS: CHLORIDE 108 mmol/L (98-107); SODIUM 140 mmol/L (136-145)
[2020-11-29 07:53] LABS: CALCIUM 9.2 mg/dL (8.5-10.1)
[2020-11-29 07:54] LABS: ANION GAP 2 MMOL/L (8-16); CO2 30 mmol/L (21-32); GLUCOSE,RANDOM 90 mg/dL (74-106)
[2020-11-29 07:57] LABS: CREATININE 1.2 mg/dL (0.55-1.3); SGOT/AST 22 U/L (15-37); SGPT/ALT 31 U/L (13-61)
[2020-11-29 07:58] LABS: BILIRUBIN,TOTAL 0.8 mg/dL (0.2-1); TOT PROT 7.1 g/dl (6.4-8.2)
[2020-11-29 07:59] LABS: ALK PHOS 59 U/L (45-117)
[2020-11-29] MEDS: UMECLIDINIUM/VILANTEROL (ANORO) 62.5/25 MCG INHALER IH SCH (10:56)
[2020-11-29] MEDS: TAMSULOSIN HCL 0.4 MG CAP PO SCH (10:56)
[2020-11-29] MEDS: ENOXAPARIN NA (PORCINE) 40 MG/0.4 ML DISP.SYRIN SQ SCH (10:57)
[2020-11-29] MEDS: ASPIRIN 81 MG CHEWABLE TABLETS PO SCH (10:57)
[2020-11-29] MEDS: amLODIPine BESYLATE 10 MG TABLET (FP) PO SCH (10:57)
[2020-11-29] MEDS: ATORVASTATIN CA 10 MG TABLET (FP) PO SCH (22:23)
[2020-11-29] MEDS: MELATONIN 5 MG TABLETS PO PRN (22:27)
[2020-11-30 01:55] VITALS: TEMP 98
[2020-11-30 08:28] LABS: HEMATOCRIT 36.3 % (35.4-49); MCH 23.4 pg (25.7-33.7); MEAN CELL VOLUME 70.8 fl (80-96); MEAN PLT VOLUME 9.9 fl (7.5-11.1); PLATELET COUNT 144 10^3/uL (134-434); RBC 5.13 M/mm3 (4.00-5.60); RDW 16.1 % (11.9-15.9); WHITE BLOOD COUNT 3.2 K/mm3 (4.0-10.0)
[2020-11-30 08:40] LABS: MAGNESIUM 2.2 mg/dL (1.8-2.4)
[2020-11-30 08:43] LABS: CREATININE 1.1 mg/dL (0.55-1.3); PHOSPHOROUS 3.6 mg/dL (2.5-4.9)
[2020-11-30 09:34] VITALS: BP 136/84; PULSE 86
[2020-11-30] MEDS: UMECLIDINIUM/VILANTEROL (ANORO) 62.5/25 MCG INHALER IH SCH (09:38)
[2020-11-30] MEDS: ASPIRIN 81 MG CHEWABLE TABLETS PO SCH (09:38)
[2020-11-30] MEDS: TAMSULOSIN HCL 0.4 MG CAP PO SCH (09:38)
[2020-11-30] MEDS: ENOXAPARIN NA (PORCINE) 40 MG/0.4 ML DISP.SYRIN SQ SCH (09:39)
[2020-11-30] MEDS: amLODIPine BESYLATE 10 MG TABLET (FP) PO SCH (09:39)
[2020-11-30] MEDS ORDERED: CLOPIDOGREL BISULFATE 300 MG TABLET PO ONE ×2 (10:00→10:38)
== END 2020-11-30 12:15 | disposition short-term general hospital (02) | DRG 303 ==
LOC: JER 14:16 → JERBED 15:47 → J4W 11-24 04:04 → OBSVTOIN 11-24 15:47
PROVIDERS: ADMIT Internal Medicine; ATTEND Internal Medicine
DX: I25.119 Atherosclerotic heart disease of native coronary artery with unspecified angina pectoris (principal); K86.2 Cyst of pancreas; N17.9 Acute kidney failure, unspecified; I31.3 Pericardial effusion (noninflammatory); N17.8 Other acute kidney failure; J44.9 Chronic obstructive pulmonary disease, unspecified; D64.9 Anemia, unspecified; I71.2 Thoracic aortic aneurysm, without rupture; D72.819 Decreased white blood cell count, unspecified; N40.0 Benign prostatic hyperplasia without lower urinary tract symptoms; R73.03 Prediabetes; T50.8X5A Adverse effect of diagnostic agents, initial encounter; G47.00 Insomnia, unspecified; R91.1 Solitary pulmonary nodule; E78.5 Hyperlipidemia, unspecified; I12.9 Hypertensive chronic kidney disease with stage 1 through stage 4 chronic kidney disease, or unspecified chronic kidney disease; N18.9 Chronic kidney disease, unspecified; N14.1 Nephropathy induced by other drugs, medicaments and biological substances; Z85.46 Personal history of malignant neoplasm of prostate
CPT/HCPCS: 36415; 71275-TC; 74174-TC; 78452-TC; 80048; 80053; 80061; 82550; 82553; 83036; 83690; 83735; 83880; 84100; 84436; 84443; 84484; 85025; 85027; 85610; 85730; 86850; 86900; 86901; 93005; 93010; 93017; 93306-TC; 99285-25; A9502; C9803; G0378; U0003; U0005

== ENCOUNTER 2021-02-19 10:05 | Observation (INO) | payer OTHER ==
[2021-02-19 10:13] VITALS: BMI 25.8
[2021-02-19] MEDS ORDERED: ASPIRIN 81 MG CHEWABLE TABLETS PO ONE (10:55)
[2021-02-19] MEDS ORDERED: ASPIRIN 81 MG CHEWABLE TABLETS ONE (11:25)
[2021-02-19 11:56] LABS: BASO % 1.4 % (0-2.0); EOS % 7.8 % (0-4.5); HEMATOCRIT 33.9 % (35.4-49); HEMOGLOBIN 11.1 GM/dL (11.7-16.9); LYMPH % 33.1 % (8-40); MCH 23.4 pg (25.7-33.7); MCHC 32.8 g/dl (32.0-35.9); MEAN CELL VOLUME 71.4 fl (80-96); MEAN PLT VOLUME 8.8 fl (7.5-11.1); MONO % 11.3 % (3.8-10.2); NEUT % 46.4 % (42.8-82.8); PLATELET COUNT 162 10^3/uL (134-434); RBC 4.75 M/mm3 (4.00-5.60); RDW 17.4 % (11.9-15.9); WHITE BLOOD COUNT 2.7 K/mm3 (4.0-10.0)
[2021-02-19 12:03] LABS: INR 1.2 (0.83-1.09); PROTHROMBIN TIME (PATIENT) 13.5 SEC (9.7-13.0)
[2021-02-19 12:05] LABS: ACTIVATED PTT 32.1 SECONDS (25.2-36.5)
[2021-02-19 12:15] LABS: CHLORIDE 105 mmol/L (98-107); SODIUM 141 mmol/L (136-145)
[2021-02-19 12:17] LABS: BLOOD UREA NITROGEN 18.3 mg/dL (7-18); CALCIUM 9.2 mg/dL (8.5-10.1)
[2021-02-19 12:18] LABS: ALBUMIN 3.8 g/dl (3.4-5.0); ANION GAP 4 MMOL/L (8-16); CO2 31 mmol/L (21-32); GLUCOSE,RANDOM 112 mg/dL (74-106); MAGNESIUM 2.4 mg/dL (1.8-2.4)
[2021-02-19 12:20] LABS: SGOT/AST 26 U/L (15-37); SGPT/ALT 48 U/L (13-61)
[2021-02-19 12:21] LABS: CREATININE 1.4 mg/dL (0.55-1.3)
[2021-02-19 12:22] LABS: BILIRUBIN,TOTAL 0.7 mg/dL (0.2-1); TOT PROT 6.8 g/dl (6.4-8.2)
[2021-02-19 12:23] LABS: ALK PHOS 72 U/L (45-117)
[2021-02-19] MEDS ORDERED: ATORVASTATIN CA 10 MG TABLET (FP) PO SCH (22:00)
[2021-02-20 08:11] LABS: CALCIUM 9.3 mg/dL (8.5-10.1)
[2021-02-20 08:12] LABS: BLOOD UREA NITROGEN 17.8 mg/dL (7-18)
[2021-02-20 08:15] LABS: CREATININE 1.3 mg/dL (0.55-1.3)
[2021-02-20 08:20] LABS: N-TERMINAL BNP 39.1 pg/ml (5-450)
[2021-02-20] MEDS ORDERED: TAMSULOSIN HCL 0.4 MG CAP PO SCH (08:30)
[2021-02-20] MEDS ORDERED: amLODIPine BESYLATE 10 MG TABLET (FP) PO SCH (10:00)
[2021-02-20] MEDS ORDERED: ASPIRIN COATED 81 MG TABLET.EC PO SCH (10:00)
[2021-02-20] MEDS ORDERED: UMECLIDINIUM/VILANTEROL (ANORO) 62.5/25 MCG INHALER IH SCH (10:00)
[2021-02-20] MEDS ORDERED: metoPROLOL SUCCINATE 25 MG TAB.SR.24H (FP) PO SCH (10:00)
[2021-02-20 10:25] VITALS: BP 140/70; PULSE 70; TEMP 97.9
[2021-02-20] MEDS ORDERED: ATORVASTATIN CA 80 MG TABLET (FP) PO SCH (22:00)
== END 2021-02-20 12:11 | disposition left against medical advice (07) ==
LOC: JER 10:05 → JERBED 12:45 → J4W 16:41
PROVIDERS: ADMIT Internal Medicine; ATTEND Internal Medicine
DX: R07.9 Chest pain, unspecified (principal); I10 Essential (primary) hypertension; J44.9 Chronic obstructive pulmonary disease, unspecified; N40.0 Benign prostatic hyperplasia without lower urinary tract symptoms; E78.5 Hyperlipidemia, unspecified; I25.10 Atherosclerotic heart disease of native coronary artery without angina pectoris; I71.2 Thoracic aortic aneurysm, without rupture; R10.9 Unspecified abdominal pain; S22.39XA Fracture of one rib, unspecified side, initial encounter for closed fracture; W18.39XA Other fall on same level, initial encounter; Y93.89 Activity, other specified; Y92.89 Other specified places as the place of occurrence of the external cause; M62.838 Other muscle spasm; M54.2 Cervicalgia; Z85.46 Personal history of malignant neoplasm of prostate; I72.9 Aneurysm of unspecified site
CPT/HCPCS: 36415; 71045-TC-FY; 80048; 80053; 80061; 82550; 83735; 83880; 84484; 85025; 85610; 85730; 93005; 93010; 99285-25; C9803; G0378; U0003; U0005

== ENCOUNTER 2023-04-16 12:42 | Observation (INO) | payer OTHER ==
[2023-04-16 14:51] LABS: BASO % 0.5 % (0-2.0); EOS % 1.3 % (0-4.5); HEMATOCRIT 36.4 % (35.4-49); HEMOGLOBIN 11.8 GM/dL (11.7-16.9); LYMPH % 35.1 % (8-40); MCH 23.3 pg (25.7-33.7); MCHC 32.3 g/dl (32.0-35.9); MEAN PLT VOLUME 9.3 fl (7.5-11.1); MONO % 12.1 % (3.8-10.2); PLATELET COUNT 148 10^3/uL (134-434); RBC 5.05 M/mm3 (4.00-5.60); RDW 17.2 % (11.9-15.9); WHITE BLOOD COUNT 3.3 K/mm3 (4.0-10.0)
[2023-04-16 15:10] LABS: URINE APPEARANCE CLEAR; URINE BILIRUBIN NEGATIVE (NEGATIVE); URINE COLOR YELLOW; URINE GLUCOSE (UA) NEGATIVE (NEGATIVE); URINE KETONE NEGATIVE (NEGATIVE); URINE LEUK ESTERASE NEGATIVE (NEGATIVE); URINE NITRITE NEGATIVE (NEGATIVE); URINE PROTEIN NEGATIVE (NEGATIVE); URINE UROBILINOGEN 0.2 mg/dL (0.2-1.0)
[2023-04-16 15:12] LABS: ACTIVATED PTT 33.5 SECONDS (25.2-36.5); INR 1.1 (0.83-1.09); PROTHROMBIN TIME (PATIENT) 12.7 SEC (9.7-13.0)
[2023-04-16 15:13] LABS: POTASSIUM 4.1 mmol/L (3.5-5.1)
[2023-04-16 15:14] LABS: ALBUMIN 4.1 g/dl (3.4-5.0); BLOOD UREA NITROGEN 14.3 mg/dL (7-18)
[2023-04-16 15:17] LABS: CREATININE 1.2 mg/dL (0.55-1.3)
[2023-04-16 15:19] LABS: BILIRUBIN,TOTAL 0.6 mg/dL (0.2-1); TOT PROT 7.3 g/dl (6.4-8.2)
[2023-04-16 21:04] VITALS: BMI 25.2
[2023-04-16] MEDS: ISOSORBIDE MONONITRATE 30 MG TAB.SR.24H (FP) PO SCH (21:28)
[2023-04-16] MEDS ORDERED: ATORVASTATIN CA 40 MG TABLET (FP) PO SCH (22:00)
[2023-04-17 08:15] LABS: BASO % 1.1 % (0-2.0); EOS % 2.2 % (0-4.5); HEMATOCRIT 37.4 % (35.4-49); HEMOGLOBIN 11.6 GM/dL (11.7-16.9); LYMPH % 37.6 % (8-40); MCH 22.6 pg (25.7-33.7); MCHC 31.1 g/dl (32.0-35.9); MEAN CELL VOLUME 72.7 fl (80-96); MEAN PLT VOLUME 9.7 fl (7.5-11.1); MONO % 10.4 % (3.8-10.2); NEUT % 48.7 % (42.8-82.8); PLATELET COUNT 157 10^3/uL (134-434); RBC 5.15 M/mm3 (4.00-5.60); RDW 16.6 % (11.9-15.9); WHITE BLOOD COUNT 3.3 K/mm3 (4.0-10.0)
[2023-04-17 08:26] LABS: POTASSIUM 3.8 mmol/L (3.5-5.1)
[2023-04-17 08:29] LABS: CALCIUM 9.2 mg/dL (8.5-10.1)
[2023-04-17 08:30] LABS: ALBUMIN 3.8 g/dl (3.4-5.0); BLOOD UREA NITROGEN 17.9 mg/dL (7-18); MAGNESIUM 2.5 mg/dL (1.8-2.4)
[2023-04-17] MEDS ORDERED: TAMSULOSIN HCL 0.4 MG CAP PO SCH (08:30)
[2023-04-17 08:33] LABS: CREATININE 1.2 mg/dL (0.55-1.3); PHOSPHOROUS 3.4 mg/dL (2.5-4.9)
[2023-04-17 08:34] LABS: BILIRUBIN,TOTAL 0.7 mg/dL (0.2-1); TOT PROT 6.8 g/dl (6.4-8.2)
[2023-04-17] MEDS ORDERED: FAMOTIDINE 20 MG TABLET PO SCH (10:00)
[2023-04-17] MEDS ORDERED: ASPIRIN 81 MG CHEWABLE TABLETS PO SCH (10:00)
[2023-04-17] MEDS ORDERED: UMECLIDINIUM/VILANTEROL (ANORO) 62.5/25 MCG INHALER IH SCH (10:00)
[2023-04-17] MEDS ORDERED: amLODIPine BESYLATE 10 MG TABLET (FP) PO SCH (10:00)
[2023-04-17] MEDS ORDERED: metoPROLOL SUCCINATE 25 MG TAB.SR.24H (FP) PO SCH (10:00)
[2023-04-17] MEDS ORDERED: REGADENOSON 0.4 MG/5 ML PRE-FILLED SYRINGE IVPUSH ONE ×2 (10:15→12:06)
[2023-04-17] MEDS: ISOSORBIDE MONONITRATE 30 MG TAB.SR.24H (FP) PO SCH (13:52)
[2023-04-17 14:40] VITALS: PULSE 71; RESP 18
[2023-04-17 15:33] VITALS: BP 126/98; TEMP 97.5
[2023-04-17] MEDS ORDERED: ROSUVASTATIN CA 20 MG TABLET PO SCH (22:00)
== END 2023-04-17 17:06 | disposition home or self-care (01) ==
LOC: JER 12:42 → JERBED 17:46 → J4W 19:46
PROVIDERS: ADMIT Internal Medicine; ATTEND Internal Medicine
PROC: 3E033GC Introduction of Other Therapeutic Substance into Peripheral Vein, Percutaneous Approach (ICD-10-PCS; principal; 2023-04-16)
DX: I20.9 Angina pectoris, unspecified (principal); I10 Essential (primary) hypertension; E78.5 Hyperlipidemia, unspecified; J44.89 Other specified chronic obstructive pulmonary disease; R07.9 Chest pain, unspecified; I71.20 Thoracic aortic aneurysm, without rupture, unspecified; R06.00 Dyspnea, unspecified; R06.02 Shortness of breath; Z87.738 Personal history of other specified (corrected) congenital malformations of digestive system
CPT/HCPCS: 0241U-QW; 36415; 71045-TC-FY; 71275-TC; 78452-TC; 80053; 81003; 83735; 84100; 84484; 85025; 85610; 85730; 93005; 93010; 93017; 93306-TC; 96374; 99285-25; A9502; G0378; J2785; Q9967

== ENCOUNTER 2023-05-09 05:31 | Emergency (ER) | payer OTHER ==
[2023-05-09 05:39] VITALS: BP 145/75; PULSE 66; RESP 20; BMI 26.9
== END 2023-05-09 06:48 | disposition home or self-care (01) ==
LOC: JER 05:31
DX: K40.90 Unilateral inguinal hernia, without obstruction or gangrene, not specified as recurrent (principal); K59.00 Constipation, unspecified
CPT/HCPCS: 99282-25

== ENCOUNTER 2023-06-23 16:05 | Emergency (ER) | payer OTHER ==
[2023-06-23 16:15] VITALS: BP 135/73; PULSE 79; RESP 18; BMI 26.1
[2023-06-23 17:42] LABS: INR 1.09 (0.83-1.09); PROTHROMBIN TIME (PATIENT) 12.6 SEC (9.7-13.0)
[2023-06-23 17:46] LABS: ACTIVATED PTT 32.1 SECONDS (25.2-36.5); BASO % 2.6 % (0-2.0); EOS % 2.9 % (0-4.5); HEMATOCRIT 37.5 % (35.4-49); HEMOGLOBIN 11.8 GM/dL (11.7-16.9); LYMPH % 39.3 % (8-40); MCH 22.8 pg (25.7-33.7); MCHC 31.4 g/dl (32.0-35.9); MEAN CELL VOLUME 72.5 fl (80-96); MONO % 9.3 % (3.8-10.2); NEUT % 45.9 % (42.8-82.8); PLATELET COUNT 146 10^3/uL (134-434); RBC 5.16 M/mm3 (4.00-5.60); RDW 16.8 % (11.9-15.9); WHITE BLOOD COUNT 3.6 K/mm3 (4.0-10.0)
[2023-06-23 17:47] LABS: POTASSIUM 4.3 mmol/L (3.5-5.1)
[2023-06-23 17:50] LABS: ALBUMIN 4.1 g/dl (3.4-5.0); BLOOD UREA NITROGEN 18.6 mg/dL (7-18); CALCIUM 9.6 mg/dL (8.5-10.1)
[2023-06-23 17:54] LABS: CREATININE 1.2 mg/dL (0.55-1.3)
[2023-06-23 17:56] LABS: BILIRUBIN,TOTAL 0.5 mg/dL (0.2-1); TOT PROT 7.3 g/dl (6.4-8.2)
[2023-06-23] MEDS ORDERED: ACETAMINOPHEN INJECTION 100 ML IVPB ONE (17:59)
[2023-06-23] MEDS: ACETAMINOPHEN 1000 MG/100 ML BAG IVPB ONE (18:04)
[2023-06-23 18:42] LABS: ANISOCYTOSIS 2+; MACROCYTOSIS 0; OVALOCYTE 2+; TARGET CELLS 1+
== END 2023-06-23 20:35 | disposition home or self-care (01) ==
LOC: JER 16:05
PROC: 3E030NZ Introduction of Analgesics, Hypnotics, Sedatives into Peripheral Vein, Open Approach (ICD-10-PCS; principal; 2023-06-23)
DX: R07.2 Precordial pain (principal); R06.02 Shortness of breath; R05.9 Cough, unspecified; J34.89 Other specified disorders of nose and nasal sinuses; Z20.822 Contact with and (suspected) exposure to COVID-19
CPT/HCPCS: 0241U-QW; 36415; 71045-TC-FY; 74176-TC; 80053; 84484; 85025; 85610; 85730; 93005; 93010; 96374; 99285-25; J0131

== ENCOUNTER 2023-07-11 04:35 | Day surgery (SDC) | payer OTHER ==
[2023-07-08 15:14] VITALS: BMI 28.7
[2023-07-11] MEDS ORDERED: ceFAZolin SODIUM 1 GM VIAL ONE (06:51)
[2023-07-11] MEDS ORDERED: CEFAZOLIN SODIUM 2 GM in DEXTROSE 5%-WATER 100 ML IVPB ONE (07:00)
[2023-07-11] MEDS ORDERED: PROPOFOL 20 ML ONE (08:05)
[2023-07-11] MEDS ORDERED: FENTANYL CITRATE/PF 50 MCG/ML VIAL ONE ×2 (08:05→10:51)
[2023-07-11] MEDS ORDERED: MIDAZOLAM HCL 2 MG/2 ML SINGLE DOSE VIAL ONE (08:06)
[2023-07-11] MEDS ORDERED: oxyCODONE HCL 5 MG TABLET PO PRN (08:09)
[2023-07-11] MEDS ORDERED: ONDANSETRON 4 MG/2 ML VIAL IVPUSH PRN (08:09)
[2023-07-11] MEDS ORDERED: PROMETHAZINE HCL 25 MG/1 ML VIAL IVPB PRN (08:09)
[2023-07-11] MEDS ORDERED: SEVOFLURANE 250 ML BTL ONE (08:14)
[2023-07-11] MEDS ORDERED: LACTATED RINGERS SOLUTION 1,000 ML IV SCH (08:15)
[2023-07-11] MEDS ORDERED: DEXAMETHASONE SOD PHOSPHATE 4 MG/1 ML VIAL ONE (08:20)
[2023-07-11] MEDS ORDERED: LIDOCAINE HCL/PF 2% SDV 5ML VIAL ONE (08:20)
[2023-07-11] MEDS ORDERED: SUGAMMADEX SODIUM 200 MG/2 ML VIAL ONE (08:28)
[2023-07-11] MEDS ORDERED: ROCURONIUM BROMIDE 50 MG/5 ML SYRINGE ONE (08:28)
[2023-07-11] MEDS: ceFAZolin SODIUM 1 GM VIAL IVPB ONE (08:35)
[2023-07-11] MEDS ORDERED: KETOROLAC TROMETHAMINE 30 MG/1 ML VIAL ONE (08:40)
[2023-07-11] MEDS ORDERED: ACETAMINOPHEN INJECTION 100 ML IVPB ONE (08:40)
[2023-07-11] MEDS: oxyCODONE HCL 5 MG TABLET PO PRN (13:06)
[2023-07-11] MEDS ORDERED: oxyCODONE HCL 5 MG TABLET ONE (13:07)
[2023-07-11 13:50] VITALS: RESP 20; TEMP 97.2
[2023-07-11 13:53] VITALS: BP 130/71; PULSE 54
== END 2023-07-11 13:36 | disposition home or self-care (01) ==
LOC: JASU-SURG 04:35
PROVIDERS: ATTEND Surgery
PROC: 8E0W4CZ Robotic Assisted Procedure of Trunk Region, Percutaneous Endoscopic Approach (ICD-10-PCS; 2023-07-11)
PROC: 0YU54JZ Supplement Right Inguinal Region with Synthetic Substitute, Percutaneous Endoscopic Approach (ICD-10-PCS; principal; 2023-07-11 08:00)
DX: K40.31 Unilateral inguinal hernia, with obstruction, without gangrene, recurrent (principal)
CPT/HCPCS: 49651; S2900; 94760; C1781; J0131

== ENCOUNTER 2023-09-04 04:06 | Day surgery (SDC) | payer OTHER ==
[2023-09-02 11:02] VITALS: BMI 25.9
[2023-09-04] MEDS ORDERED: LIDOCAINE HCL/PF 1% SDV 5ML VIAL ONE (07:11)
[2023-09-04] MEDS ORDERED: DEXAMETHASONE SOD PHOSPHATE 10 MG/1 ML VIAL ONE (07:11)
[2023-09-04 09:24] VITALS: RESP 18
[2023-09-04] MEDS: LIDOCAINE 1% P/F 10 MG/ML VIAL INF ONE (10:08)
[2023-09-04] MEDS: IOHEXOL 180 MG/1 ML ML IJ ONE (10:09)
[2023-09-04] MEDS: DEXAMETHASONE SOD PHOSPHATE 10 MG/1 ML VIAL IVPUSH ONE (10:12)
[2023-09-04 10:50] VITALS: BP 127/73; PULSE 61; TEMP 97.8
[2023-09-04] MEDS ORDERED: ACETAMINOPHEN 500 MG TABLET (FP) PO PRN (15:35)
== END 2023-09-04 10:45 | disposition home or self-care (01) ==
LOC: JASU-SURG 04:06
PROVIDERS: ATTEND Pain Medicine Pain Medicine
PROC: 3E0R3BZ Introduction of Anesthetic Agent into Spinal Canal, Percutaneous Approach (ICD-10-PCS; 2023-09-04)
PROC: 3E0R33Z Introduction of Anti-inflammatory into Spinal Canal, Percutaneous Approach (ICD-10-PCS; principal; 2023-09-04 10:45)
DX: M48.061 Spinal stenosis, lumbar region without neurogenic claudication (principal); M54.16 Radiculopathy, lumbar region
CPT/HCPCS: 76000-TC-FY; J1100

== ENCOUNTER 2024-02-05 05:32 | Day surgery (SDC) | payer OTHER ==
[2024-02-05] MEDS ORDERED: ACETAMINOPHEN 500 MG TABLET (FP) PO PRN (08:54)
[2024-02-05 12:34] VITALS: RESP 18; BMI 25.9
[2024-02-05] MEDS: LIDOCAINE HCL 1% PRESERVATIVE FREE - 30ML VIAL IJ ONE (14:16)
[2024-02-05] MEDS: IOHEXOL 180 MG/1 ML ML IJ ONE (14:18)
[2024-02-05] MEDS: DEXAMETHASONE SOD PHOSPHATE 10 MG/1 ML VIAL IVPUSH ONE (14:20)
[2024-02-05 14:52] VITALS: BP 142/81; PULSE 55; TEMP 98.2
== END 2024-02-05 15:00 | disposition home or self-care (01) ==
LOC: JASU-SURG 05:32
PROVIDERS: ATTEND Pain Medicine Pain Medicine
PROC: 3E0R3BZ Introduction of Anesthetic Agent into Spinal Canal, Percutaneous Approach (ICD-10-PCS; 2024-02-05)
PROC: 3E0R33Z Introduction of Anti-inflammatory into Spinal Canal, Percutaneous Approach (ICD-10-PCS; principal; 2024-02-05 15:00)
DX: M48.061 Spinal stenosis, lumbar region without neurogenic claudication (principal); M54.16 Radiculopathy, lumbar region
CPT/HCPCS: 76000-TC-FY; J1100

== ENCOUNTER 2024-03-04 04:11 | Day surgery (SDC) | payer OTHER ==
[2024-03-03 13:22] VITALS: BMI 25.9
[2024-03-04] MEDS ORDERED: TRIAMCINOLONE ACET 40MG/1ML VIAL ONE (07:23)
[2024-03-04] MEDS ORDERED: LIDOCAINE HCL/PF 1% SDV 5ML VIAL ONE (07:24)
[2024-03-04] MEDS ORDERED: BUPIVACAINE HCL/PF 0.5% (5MG/ML) 10 ML VIAL ONE (07:24)
[2024-03-04 11:49] VITALS: RESP 16
[2024-03-04] MEDS: BUPIVACAINE HCL/PF 0.5% (5MG/ML) 10 ML VIAL IJ ONE (14:41)
[2024-03-04] MEDS: LIDOCAINE HCL 1% PRESERVATIVE FREE - 30ML VIAL IJ ONE (14:41)
[2024-03-04] MEDS: IOHEXOL 180 MG/1 ML ML IJ ONE (14:42)
[2024-03-04] MEDS: TRIAMCINOLONE ACETONIDE 40 MG/ML 10 ML VIAL IJ ONE ×2 (14:43)
[2024-03-04 14:59] VITALS: BP 126/72; PULSE 52; TEMP 98.2
[2024-03-04] MEDS ORDERED: ACETAMINOPHEN 500 MG TABLET (FP) PO PRN (19:02)
== END 2024-03-04 15:30 | disposition home or self-care (01) ==
LOC: JASU-SURG 04:11
PROVIDERS: ATTEND Pain Medicine Pain Medicine
PROC: 3E0U3BZ Introduction of Anesthetic Agent into Joints, Percutaneous Approach (ICD-10-PCS; 2024-03-04)
PROC: 3E0U33Z Introduction of Anti-inflammatory into Joints, Percutaneous Approach (ICD-10-PCS; principal; 2024-03-04 13:15)
DX: M16.11 Unilateral primary osteoarthritis, right hip (principal)
CPT/HCPCS: 76000-TC-FY

== ENCOUNTER 2024-06-03 06:24 | Day surgery (SDC) | payer OTHER ==
[2024-05-31 13:07] VITALS: BMI 26.6
[2024-06-03 06:49] VITALS: RESP 18; TEMP 96.4
[2024-06-03] MEDS ORDERED: DEXAMETHASONE SOD PHOSPHATE 10 MG/1 ML VIAL ONE (07:42)
[2024-06-03] MEDS ORDERED: LIDOCAINE HCL/PF 1% SDV 5ML VIAL ONE (07:42)
[2024-06-03] MEDS: LIDOCAINE HCL 1% PRESERVATIVE FREE - 30ML VIAL IJ ONE ×2 (08:31)
[2024-06-03] MEDS: IOHEXOL 180 MG/1 ML ML IJ ONE ×2 (08:33)
[2024-06-03] MEDS: DEXAMETHASONE SOD PHOSPHATE 10 MG/1 ML VIAL IM ONE ×2 (08:34)
[2024-06-03 08:52] VITALS: BP 148/52; PULSE 51
[2024-06-03] MEDS ORDERED: ACETAMINOPHEN 500 MG TABLET (FP) PO PRN (08:57)
== END 2024-06-03 09:05 | disposition home or self-care (01) ==
LOC: JASU-SURG 06:24
PROVIDERS: ATTEND Pain Medicine Pain Medicine
PROC: 3E0R3BZ Introduction of Anesthetic Agent into Spinal Canal, Percutaneous Approach (ICD-10-PCS; 2024-06-03)
PROC: 00HU33Z Insertion of Infusion Device into Spinal Canal, Percutaneous Approach (ICD-10-PCS; 2024-06-03)
PROC: 3E0R33Z Introduction of Anti-inflammatory into Spinal Canal, Percutaneous Approach (ICD-10-PCS; principal; 2024-06-03 08:00)
DX: M54.16 Radiculopathy, lumbar region (principal); M48.061 Spinal stenosis, lumbar region without neurogenic claudication
CPT/HCPCS: 76000-TC-FY; J1100

== ENCOUNTER 2024-06-24 06:49 | Day surgery (SDC) | payer OTHER ==
[2024-06-22 16:56] VITALS: BMI 26.6
[2024-06-24] MEDS ORDERED: LIDOCAINE HCL/PF 1% SDV 5ML VIAL ONE (07:31)
[2024-06-24] MEDS ORDERED: ACETAMINOPHEN 500 MG TABLET (FP) PO PRN (09:16)
[2024-06-24] MEDS: LIDOCAINE HCL 1% PRESERVATIVE FREE - 30ML VIAL IJ ONE (10:35)
[2024-06-24 10:59] VITALS: BP 158/84; PULSE 50; RESP 16; TEMP 97.6
== END 2024-06-24 12:10 | disposition home or self-care (01) ==
LOC: JASU-SURG 06:49
PROVIDERS: ATTEND Pain Medicine Pain Medicine
PROC: 01HY3MZ Insertion of Neurostimulator Lead into Peripheral Nerve, Percutaneous Approach (ICD-10-PCS; principal; 2024-06-24 10:15)
DX: G89.4 Chronic pain syndrome (principal)
CPT/HCPCS: 64555; C1778